=== PATIENT | male | born 1990 | race Hispanic/Latino ===

== ENCOUNTER 2020-10-07 16:38 | Emergency (ER) | payer SELFPAY ==
[2020-10-07] MEDS ORDERED: ONDANSETRON 4 MG TABLET ONE (17:37)
[2020-10-07] MEDS ORDERED: DICYCLOMINE HCL 20 MG TAB ONE (17:38)
[2020-10-07 18:00] LABS: AMPHET/METH SCREEN,URINE NEGATIVE (NEGATIVE); BARBITURATE SCREEN, URINE NEGATIVE (NEGATIVE); BENZODIAZEPINES SCREEN,URINE NEGATIVE (NEGATIVE); CANNABINOID SCREEN,URINE POSITIVE (NEGATIVE); COCAINE SCREEN,URINE POSITIVE (NEGATIVE); OPIATE SCREEN,URINE NEGATIVE (NEGATIVE); PHENCYCLIDINE SCREEN,URINE NEGATIVE (NEGATIVE)
[2020-10-07 18:01] LABS: BASOPHILS % (AUTO) 0.3 % (0.0-5.0); EOSINOPHILS % (AUTO) 0.7 % (0.0-8.0); HEMATOCRIT 48.1 % (42-54); LYMPHOCYTES % (AUTO) 5.4 % (21.0-51.0); MEAN CORPUSCULAR HEMOGLOBIN 29.8 pg (27.0-33.0); MEAN CORPUSCULAR HGB CONC 33.5 g/dL (32.0-36.0); MEAN CORPUSCULAR VOLUME 89.1 fL (79-99); MONOCYTES % (AUTO) 6.5 % (3.0-13.0); NEUTROPHILS % (AUTO) 86.8 % (40.0-77.0); PLATELET COUNT (AUTO) 265 K/uL (130-400); RED CELL DISTRIBUTION WIDTH 13.6 % (11.0-15.5); WHITE BLOOD COUNT (AUTO) 11.7 K/uL (4.8-10.8)
[2020-10-07 18:02] LABS: APPEARANCE,URINE Clear (CLEAR); BILIRUBIN,URINE Negative (NEGATIVE); COLOR,URINE Yellow (YELLOW); GLUCOSE, URINE (UA) Negative (NEGATIVE); KETONES,URINE Trace mg/dL (NEGATIVE); LEUKOCYTE ESTERASE ,URINE Trace (NEGATIVE); NITRATE,URINE Negative (NEGATIVE); OCCULT BLOOD,URINE Negative (NEGATIVE); PROTEIN,URINE Negative (NEGATIVE)
[2020-10-07 18:08] LABS: CREATININE 1.2 mg/dL (0.5-1.5); POTASSIUM 3.9 mmol/L (3.5-5.1)
[2020-10-07 18:18] LABS: ALBUMIN 4.8 g/dL (3.5-5.0); TOTAL PROTEIN, SERUM 8.6 g/dL (6.0-8.3)
[2020-10-07 18:19] LABS: BACTERIA,URINE Few /HPF (None Seen); MUCUS,URINE Many LPF (None Seen); SQUAMOUS EPITHELIAL CELL,UR 0-2 /HPF (0-2)
== END 2020-10-07 18:55 | disposition home or self-care (01) ==
LOC: EDH 16:38
DX: B33.8 Other specified viral diseases (principal); Z72.0 Tobacco use
CPT/HCPCS: 36415; 80053; 80305; 81001; 83690; 85025; 99283; Q0162

== ENCOUNTER 2022-06-08 11:23 | Emergency (ER) | payer OTHER ==
[~2022-06-08] VITALS: Ht 185.4 cm; Wt 75.7 kg
[2022-06-08 11:55] VITALS: BP 124/58
[2022-06-08] MEDS ORDERED: NIRM1TAB PO (12:48)
[2022-06-08] MEDS ORDERED: BENZ-39 PO (12:48)
[2022-06-08] MEDS ORDERED: IBUP-2070 PO (12:48)
[2022-06-08] MEDS ORDERED: D-ME118S47 PO (12:48)
== END 2022-06-08 12:55 | disposition home or self-care (01) ==
LOC: EDH 11:23
DX: U07.1 COVID-19 (principal); B34.9 Viral infection, unspecified
CPT/HCPCS: 99283; 87635; 87804 ×2; C9803

== ENCOUNTER 2023-05-25 12:33 | Emergency (ER) | payer OTHER ==
[~2023-05-25] VITALS: Ht 185.4 cm; Wt 74.8 kg
[~2023-05-25 12:33] MED LIST: BENZ-39 PO; BROM118S48 PO; IBUP-2070 PO; NIRM1TAB PO
[2023-05-25] MEDS ORDERED: AZITHROMYCIN 250 MG TABLET PO ONE (13:30)
[2023-05-25] MEDS ORDERED: CEFTRIAXONE 1G VIAL IM ONE (13:30)
[2023-05-25 13:42] LABS: APPEARANCE,URINE CLEAR (CLEAR); BILIRUBIN,URINE NEGATIVE (NEGATIVE); COLOR,URINE LIGHT-YELLOW (YELLOW); GLUCOSE, URINE (UA) NEGATIVE (NEGATIVE); KETONES,URINE NEGATIVE (NEGATIVE); LEUKOCYTE ESTERASE ,URINE 25 Leu/uL (NEGATIVE); NITRATE,URINE NEGATIVE (NEGATIVE); OCCULT BLOOD,URINE NEGATIVE (NEGATIVE); PROTEIN,URINE NEGATIVE (NEGATIVE); UROBILINOGEN,URINE 0.2 mg/dL (0.2-1.0)
[2023-05-25 13:46] LABS: ADD UA MICROSCOPIC YES
[2023-05-25 13:47] LABS: MUCUS,URINE RARE LPF (None Seen)
[2023-05-25] MEDS ORDERED: CEPH500B PO (14:02)
[2023-05-25 14:41] LABS: HIV 1&2 ANTIBODY Non-Reactive (Negative)
[2023-05-25 14:42] LABS: HIV-1 p24 Antigen Non-Reactive (Negative)
[2023-05-25 14:51] VITALS: BP 113/80; PULSE 89; RESP 18; O2SAT 95
[2023-05-26 14:59] LABS: RAPID PLASMA REAGIN NONREACTIVE (NONREACTIVE)
== END 2023-05-25 15:05 | disposition home or self-care (01) ==
LOC: EDH 12:33
DX: R36.9 Urethral discharge, unspecified (principal); N39.0 Urinary tract infection, site not specified; Z20.2 Contact with and (suspected) exposure to infections with a predominantly sexual mode of transmission; Z79.899 Other long term (current) drug therapy
CPT/HCPCS: 99283; 86592; 87088; 87797; 86701; 87390; 87486; 81001; 36415; 96372; J0696

== ENCOUNTER 2024-03-04 15:19 | Emergency (ER) | payer SELFPAY ==
[~2024-03-04] VITALS: Ht 182.9 cm; Wt 70.8 kg
[~2024-03-04 15:19] MED LIST changes: +CEPH500B PO
[2024-03-04 16:37] VITALS: BP 148/88; PULSE 90; RESP 16; TEMP 98.2; O2SAT 99
[2024-03-04] MEDS: ketOROlac 15MG/ML VIAL (15MG/ML) IM ONE (16:46)
[2024-03-04] MEDS ORDERED: METH-811 PO (17:17)
[2024-03-04] MEDS ORDERED: NAPR-1192 PO (17:17)
[2024-03-04] MEDS: methoCARBamol 500 MG TABLET PO SCH (17:27)
== END 2024-03-04 17:35 | disposition home or self-care (01) ==
LOC: EDH 15:19
DX: M54.50 Low back pain, unspecified (principal); M25.552 Pain in left hip; Z79.899 Other long term (current) drug therapy; W11.XXXA Fall on and from ladder, initial encounter; Y93.89 Activity, other specified; Y92.89 Other specified places as the place of occurrence of the external cause; Y99.8 Other external cause status
CPT/HCPCS: 99284; 73060; 72100; 72170; 96372; J1885